=== PATIENT | male | born 1975 | race Caucasian/White ===

== ENCOUNTER 2016-10-03 12:32 | Emergency (ER) | payer MEDICARE, MEDICAID ==
[2016-10-03] MEDS ORDERED: Ondansetron ODT 4 MG TAB ONE (13:00)
== END 2016-10-03 13:26 | disposition home or self-care (01) ==
LOC: BURERS 12:32
DX: R19.7 Diarrhea, unspecified (principal); G89.4 Chronic pain syndrome; K21.9 Gastro-esophageal reflux disease without esophagitis; J45.909 Unspecified asthma, uncomplicated; I10 Essential (primary) hypertension; F41.9 Anxiety disorder, unspecified; F40.00 Agoraphobia, unspecified; F31.9 Bipolar disorder, unspecified
CPT/HCPCS: 82272; 87015; 87045; 87046; 87324; 87449; 87899; 99284; Q0162

== ENCOUNTER 2016-10-24 15:27 | Emergency (ER) | payer MEDICARE, MEDICAID ==
[2016-10-24] MEDS ORDERED: Benzonatate 100 MG CAP ONE (16:30)
--- NOTE | 2016-10-24 17:36 | RAD ---
PORTABLE CHEST 10/24/16 An AP portable film at 1618 is compared with a 02/28/16 study. The heart is normal in size. No lobar consolidation, or effusion was seen. The lungs are clear. Slig ht prominence of the right hilum is probably more due to the patient being turned slightly than anyt garry else. The trachea is midline. IMPRESSION: No acute thoracic finding. POS: HOME
== END 2016-10-24 16:33 | disposition home or self-care (01) ==
LOC: BURERS 15:27
DX: B34.9 Viral infection, unspecified (principal); K21.9 Gastro-esophageal reflux disease without esophagitis; J45.909 Unspecified asthma, uncomplicated; I10 Essential (primary) hypertension; F31.9 Bipolar disorder, unspecified; F41.9 Anxiety disorder, unspecified; Z79.891 Long term (current) use of opiate analgesic; Z79.899 Other long term (current) drug therapy
CPT/HCPCS: 71010